=== PATIENT | male | born 1995 | race African-American/Black ===

== ENCOUNTER 2020-07-31 23:22 | Emergency (ER) | payer SELFPAY ==
[~2020-07-31] VITALS: Ht 188 cm; Wt 74.8 kg
[2020-08-01] MEDS ORDERED: IBUPROFEN 600 MG TABLET PO ONE (00:15)
[2020-08-01] MEDS ORDERED: IBUPROFEN 600 MG TABLET ONE (00:41)
--- NOTE | 2020-08-01 00:47 | NUR ---
MEDS ADMINISTERED, RT SPICA PREMADE SPLINT PLACED. PT THEN D/C'D HOME, ACI/RX X1 GIVEN . PT AMBULATED W/O DIFF/TOOK ALL BELONGINGS.
[2020-08-01 00:48] VITALS: BP 124/68
== END 2020-08-01 00:49 | disposition home or self-care (01) ==
LOC: ER 23:26
DX: S63.501A Unspecified sprain of right wrist, initial encounter (principal); W22.01XA Walked into wall, initial encounter; Y93.89 Activity, other specified; Y92.89 Other specified places as the place of occurrence of the external cause; Y99.8 Other external cause status; F17.210 Nicotine dependence, cigarettes, uncomplicated
CPT/HCPCS: 73110; A4663